=== PATIENT | female | born 1945 | race Caucasian/White ===

== ENCOUNTER 2016-06-30 06:28 | Day surgery (SDC) | payer MEDICARE ==
[~2016-06-30 06:28] MED LIST: NS 0.9% 1000 ML* 1,000 ML IV SCH
[2016-06-30] MEDS ORDERED: Clindamycin 900 MG IVPREMIX(* 900 MG/50 ML SDV IV ONE (06:36)
[2016-06-30] MEDS ORDERED: KETAMINE HCL* 50 MG/ML 10 ML VIAL ONE (07:34)
[2016-06-30] MEDS ORDERED: Midazolam* 1 MG/ML 2 ML VIAL (2 MG) ONE (07:35)
[2016-06-30] MEDS ORDERED: Bupivacaine 0.25% SDV* 30 ML ONE (07:40)
[2016-06-30] MEDS ORDERED: Famotidine IV* 10 MG/ML 2 ML (20 mg) ONE (07:40)
[2016-06-30] MEDS ORDERED: Lidocaine 2% PF * 5 ML VIAL ONE (07:49)
[2016-06-30] MEDS ORDERED: Propofol* 10 MG/ML 20 ML BTL IV PUSH ONE (07:49)
[2016-06-30] MEDS ORDERED: Ketorolac INJ* 30 MG/ML 1 ML VIAL ONE (07:49)
[2016-06-30] MEDS ORDERED: fentaNYL* 50 MCG/ML 2 ML VIAL (100 MCG VIAL) ONE (07:49)
[2016-06-30] MEDS ORDERED: Ondansetron INJ* 2 MG/ML VIAL IV PRN (08:04)
[2016-06-30] MEDS ORDERED: Acetaminophen TAB* 325 MG PO PRN (08:04)
[2016-06-30 09:13] VITALS: BP 108/57
== END 2016-06-30 08:57 | disposition home or self-care (01) ==
LOC: OREAST 06:28
PROVIDERS: ATTEND Plastic Surgery
DX: M65.341 Trigger finger, right ring finger (principal); E11.9 Type 2 diabetes mellitus without complications; Z79.4 Long term (current) use of insulin; I10 Essential (primary) hypertension; E03.9 Hypothyroidism, unspecified; D45 Polycythemia vera
CPT/HCPCS: J1885; J2250; J2704; J3010